=== PATIENT | male | born 1980 | race Caucasian/White ===

== ENCOUNTER 2018-04-07 14:26 | Inpatient (IN) | payer MEDICARE, BC ==
[~2018-04-07] VITALS: Ht 182.9 cm; Wt 81.0 kg
[~2018-04-07 14:26] MED LIST: AMLO10TA8 PO; CLON0.1T22 PO; FURO80TA3 PO; LABE100T6 PO; LOSA50TA14 PO; albuterol hfa
--- NOTE | 2018-04-07 14:40 | NUR ---
HYPOGLYCEMIC UPON ARRIVAL, FSBS 68. ERP AWARE. PT PROVIDED JUICE AND MILK OKAY PER ERP
[2018-04-07] MEDS ORDERED: hydrALAzine 20 MG/ML, 1ML IV ONE (15:00)
[2018-04-07] MEDS ORDERED: SODIUM CHLORIDE FLUSH 10ML SYR IVF ONE (15:00)
[2018-04-07 15:10] LABS: MEAN CORPUSCULAR HEMOGLOBIN 37.6 pg (27.5-34.5); MEAN CORPUSCULAR HGB CONC 32.9 g/dL (33.2-36.2); MEAN CORPUSCULAR VOLUME 114.3 fL (81-97); MEAN PLATELET VOLUME 7.4 fL (7.4-10.4); PLATELET COUNT 169 x10^3/uL (130-400); RED BLOOD COUNT 3.35 x10^6/uL (4.38-5.82); RED CELL DISTRIBUTION WIDTH 17.8 % (9.4-14.8)
[2018-04-07 15:15] LABS: ALBUMIN 4.5 g/dL (3.4-5.0); ANION GAP 12 mmol/L (5-15); CALCIUM 10.6 mg/dL (8.5-10.1); CHLORIDE 99 mmol/L (98-107); CREATININE 8.89 mg/dL (0.7-1.3)
--- NOTE | 2018-04-07 15:16 | NUR ---
UNABLE TO GIVE INITIAL ORDER OF HYDRALAZINE MEDICATION IS NOT AVAILABLE THROUGH PHARMACY AT THIS TIME. EPR AWARE. ORDER RECEIVED FOR ADDITIONAL MEDICATIONS. MEDICATIONS REQUESTED FROM PHARMACY
[2018-04-07] MEDS ORDERED: LABETALOL 5 MG/ML SYRINGE IVPush ONE (15:30)
--- NOTE | 2018-04-07 15:31 | NUR ---
PT MEDICATED PER EMAR FOR HTN. PT PLACED ON 1L BY NC PER PT'S REQUEST. SPO2 >90% ON RA. RR WNL
--- NOTE | 2018-04-07 15:51 | NUR ---
DISCUSSED TROPONIN WITH ERP
[2018-04-07 16:01] LABS: BASOPHILS # (AUTO) 0.01 x10^3/uL (0-0.1); BASOPHILS % (AUTO) 0 % (0-1); EOSINOPHILS # (AUTO) 0.15 x10^3/uL (0-0.4); EOSINOPHILS % (AUTO) 3 % (1-7); LYMPHOCYTES # (AUTO) 0.71 x10^3/uL (1-3.4); LYMPHOCYTES % (AUTO) 15 % (22-44); MD SCAN; MONOCYTES # (AUTO) 0.43 x10^3/uL (0.2-0.8); MONOCYTES % (AUTO) 9 % (2-9); NEUTROPHILS # (AUTO) 3.48 x10^3/uL (1.8-6.8); NEUTROPHILS % (AUTO) 73 % (42-75)
--- NOTE | 2018-04-07 16:10 | NUR ---
SLIGHT IMPROVEMENT IN HTN NOTED. PT REPORTS FEELING "A LITTLE BIT BETTER". FAMILY AT BEDSIDE. NSR ON MONITOR. PT RESTING IN [place] UPTON NOTED.
[2018-04-07] MEDS ORDERED: HYDR100T25 PO (16:52)
--- NOTE | 2018-04-07 16:52 | NUR ---
PT CONTINUES TO REPORTS IMPROVEMENT IN S/S. DENIES CP/SOB AT THIS TIME.
[2018-04-07] MEDS ORDERED: SODIUM CHLORIDE FLUSH 10ML SYR IVF PRN (17:00)
--- NOTE | 2018-04-07 17:06 | NUR ---
REPORT TO WILL, DIALYSIS PT. PT TO BE TRANSPORTED TO DIALYSIS FOR TREATMENT.
[2018-04-07] MEDS ORDERED: GLUCAGON 1 MG IM PRN (17:30)
[2018-04-07] MEDS ORDERED: DEXTROSE 4 GM TAB.CHEW PO PRN (17:30)
[2018-04-07] MEDS ORDERED: ONDANSETRON ODT 4 MG PO PRN (17:30)
[2018-04-07] MEDS ORDERED: GABAPENTIN 300 MG CAPSULE PO PRN (17:30)
[2018-04-07] MEDS ORDERED: DEXTROSE 50%, 50ML SYRINGE IVPush PRN (17:30)
[2018-04-07] MEDS ORDERED: DOCUSATE 100 MG CAPSULE PO PRN (17:30)
[2018-04-07] MEDS ORDERED: ONDANSETRON 2MG/ML, 2ML IVPush PRN (17:30)
[2018-04-07] MEDS: CARVEDILOL 25 MG TABLET PO SCH (18:00)
[2018-04-07] MEDS: ACETAMINOPHEN 325 MG TABLET PO PRN (18:27)
[2018-04-07] MEDS: FUROSEMIDE 80 MG TABLET PO SCH (21:00)
[2018-04-07] MEDS: INSULIN LISPRO 100 UNITS/ML, PEN SQ-INSULIN SCH (21:00)
[2018-04-07] MEDS ORDERED: LOSARTAN 50MG TABLET PO SCH (21:00)
[2018-04-07 21:45] VITALS: BP 160/72
[2018-04-07] MEDS: HEPARIN 5,000 UNITS/ML, 1ML SQ SCH (21:54)
[2018-04-07] MEDS: SODIUM CHLORIDE FLUSH 10ML SYR IVF SCH (21:54)
[2018-04-08 00:23] VITALS: BP 193/88
[2018-04-08] MEDS: ACETAMINOPHEN 325 MG TABLET PO PRN ×2 (02:50→11:12)
[2018-04-08 05:33] LABS: ALBUMIN 3.7 g/dL (3.4-5.0); ANION GAP 5 mmol/L (5-15); CALCIUM 8.8 mg/dL (8.5-10.1); CHLORIDE 103 mmol/L (98-107); CREATININE 6.21 mg/dL (0.7-1.3)
[2018-04-08 05:47] LABS: HEMOGLOBIN A1C 4.4 % (4.2-6.3)
[2018-04-08 05:51] LABS: MEAN CORPUSCULAR HEMOGLOBIN 39.1 pg (27.5-34.5); MEAN CORPUSCULAR HGB CONC 34.5 g/dL (33.2-36.2); MEAN CORPUSCULAR VOLUME 113.5 fL (81-97); MEAN PLATELET VOLUME 7.8 fL (7.4-10.4); PLATELET COUNT 127 x10^3/uL (130-400); RED BLOOD COUNT 3.01 x10^6/uL (4.38-5.82); RED CELL DISTRIBUTION WIDTH 17.4 % (9.4-14.8)
[2018-04-08 05:59] LABS: FOLATE LEVEL 11.3 ng/mL (3.1-17.5)
[2018-04-08] MEDS: HEPARIN 5,000 UNITS/ML, 1ML SQ SCH (06:29)
[2018-04-08] MEDS: CARVEDILOL 25 MG TABLET PO SCH (06:29)
[2018-04-08 06:43] LABS: BASOPHILS # (AUTO) 0.01 x10^3/uL (0-0.1); BASOPHILS % (AUTO) 0 % (0-1); EOSINOPHILS % (AUTO) 4 % (1-7); LYMPHOCYTES # (AUTO) 0.61 x10^3/uL (1-3.4); LYMPHOCYTES % (AUTO) 10 % (22-44); MD SCAN; MONOCYTES # (AUTO) 0.51 x10^3/uL (0.2-0.8); MONOCYTES % (AUTO) 9 % (2-9); NEUTROPHILS # (AUTO) 4.52 x10^3/uL (1.8-6.8); NEUTROPHILS % (AUTO) 77 % (42-75)
[2018-04-08] MEDS: INSULIN LISPRO 100 UNITS/ML, PEN SQ-INSULIN SCH ×2 (07:00→11:00)
[2018-04-08 07:35] VITALS: BP 202/86
[2018-04-08] MEDS ORDERED: hydrALAzine 20 MG/ML, 1ML IV PRN (08:00)
[2018-04-08 08:02] VITALS: BP 177/98
[2018-04-08] MEDS ORDERED: AMLODIPINE 10 MG TAB PO SCH (09:00)
[2018-04-08] MEDS: FUROSEMIDE 80 MG TABLET PO SCH (09:00)
[2018-04-08] MEDS: SODIUM CHLORIDE FLUSH 10ML SYR IVF SCH (09:07)
[2018-04-08] MEDS ORDERED: LABETALOL 300 MG TABLET PO SCH (18:00)
== END 2018-04-08 13:51 | disposition home or self-care (01) | DRG 291 ==
LOC: ED 16:26 → EDIP 17:00 → 4EST 17:32
PROVIDERS: ADMIT Internal Medicine; ATTEND Internal Medicine
PROC: 5A1D70Z Performance of Urinary Filtration, Intermittent, Less than 6 Hours Per Day (ICD-10-PCS; principal; 2018-04-07)
PROC: 5A1D70Z Performance of Urinary Filtration, Intermittent, Less than 6 Hours Per Day (ICD-10-PCS; 2018-04-08)
DX: I13.2 Hypertensive heart and chronic kidney disease with heart failure and with stage 5 chronic kidney disease, or end stage renal disease (principal); N18.6 End stage renal disease; I50.31 Acute diastolic (congestive) heart failure; I16.0 Hypertensive urgency; D53.9 Nutritional anemia, unspecified; Z88.8 Allergy status to other drugs, medicaments and biological substances; D75.89 Other specified diseases of blood and blood-forming organs; E11.22 Type 2 diabetes mellitus with diabetic chronic kidney disease; F41.9 Anxiety disorder, unspecified; Z83.3 Family history of diabetes mellitus; Z99.2 Dependence on renal dialysis
CPT/HCPCS: 36415; 71045; 80048; 80069; 82040; 82607; 82746; 82962; 83036; 83735; 84443; 84550; 85025; 86705; 86706; 86803; 87340; 93005; 93306; 96374; G0378; J1644; Q0162